=== PATIENT | male | born 1985 | race Two or more races ===

== ENCOUNTER 2017-05-15 22:05 | Emergency (ER) | payer SELFPAY ==
[2017-05-16] VITALS: BP 141/77
== END 2017-05-16 | disposition home or self-care (01) ==
LOC: ED 22:05
DX: M10.071 Idiopathic gout, right ankle and foot (principal); Z79.1 Long term (current) use of non-steroidal anti-inflammatories (NSAID)
CPT/HCPCS: J1100; Q0092

== ENCOUNTER 2019-08-26 11:32 | Emergency (ER) | payer SELFPAY ==
[~2019-08-26] VITALS: Ht 190.5 cm; Wt 111.1 kg
[2019-08-26 11:49] VITALS: Ht 190.5 cm; Wt 111.1 kg
[2019-08-26 12:27] LABS: BASOPHIL % 0.4 % (0-2)
[2019-08-26 12:32] LABS: CHLORIDE SERUM 98 mmol/L (98-107); CREATININE SERUM 1.1 mg/dL (0.7-1.3); GFR1 > 60 mL/min; PLATELET COUNT 450 x10^3mcL (130-400); RED CELL DISTRIBUTION WIDTH 16.8 % (11.5-14.5); SODIUM SERUM 135 mmol/L (136-145)
[2019-08-26 12:33] LABS: rbc morphology (normal/abnorm) ABNORMAL (NORMAL)
[2019-08-26 12:52] LABS: ALBUMIN 3.6 g/dL (3.4-5.0); ALKALINE PHOSPHATASE 81 U/L (46-116); ALT/SGPT 17 U/L (16-63); AST/SGOT 8 U/L (15-37); BILIRUBIN TOTAL 0.29 mg/dL (0.20-1.00); CALCIUM 8.7 mg/dL (8.5-10.1); CARBON DIOXIDE 27.2 mmol/L (21-32); GLUCOSE SERUM 123 mg/dL (74-106); LIPASE 72 IU/L (73-393); POTASSIUM SERUM 3.8 mmol/L (3.5-5.1); TOTAL PROTEIN, SERUM 8.1 g/dL (6.4-8.2)
[2019-08-26 14:13] VITALS: BP 124/69
== END 2019-08-26 14:13 | disposition home or self-care (01) ==
LOC: ED 11:32
PROVIDERS: Emergency Medicine
DX: K80.20 Calculus of gallbladder without cholecystitis without obstruction (principal); M10.9 Gout, unspecified
CPT/HCPCS: 36415; Q0092